=== PATIENT | female | born 1975 | race Caucasian/White ===

== ENCOUNTER 2020-05-17 17:23 | Emergency (ER) | payer MEDICARE ==
[~2020-05-17] VITALS: Ht 170.2 cm; Wt 77.3 kg
[~2020-05-17 17:23] MED LIST: ACETAMINOPHEN500 M1 PO; ALBUTEROL IH; ATIVAN1 MG PO; BACLOFEN10 MG PO; BUMEX2 MG PO; CEFTIN500 MG PO; CENTRUM SILVER1 EAC3 PO; CLEOCIN HCL150 MG PO; DUONEB 2.5-0.5 M3 ML UPD; FERROUS SULFAT325 MG PO; K-DUR20 MEQ PO; MINIPRESS 5 MG C5 MG PO; MUCINEX600 MG PO; MYSOLINE 50 MG50 MG PO; NEURONTIN 300300 MG PO; NICODERM C1 PATCH .1 TD; PEPCID20 MG PO; PREDNISONE20 MG PO; PROZAC40 MG PO; PULMICORT0.5 MG/21 NEB; TORADOL10 MG PO; Triple Antibiotic Oi TOPICAL; ULTRAM50 MG PO; VALIUM5 MG PO; VITAMIN D2000 UNIT PO; ZINC-220220 MG PO
[2020-05-17 18:06] VITALS: BP 130/71; Ht 170.2 cm; Wt 77.3 kg
[2020-05-17] MEDS ORDERED: CLINDAMYCIN HC300 MG PO (19:24)
== END 2020-05-17 19:50 | disposition home or self-care (01) ==
LOC: D.ER 17:23
DX: L73.2 Hidradenitis suppurativa (principal); N64.4 Mastodynia; G35 Multiple sclerosis